=== PATIENT | female | born 1980 | race Caucasian/White ===

== ENCOUNTER 2021-11-03 07:08 | Day surgery (SDC) | payer OTHER ==
[~2021-11-03] VITALS: Ht 154.9 cm; Wt 63.5 kg
[2021-11-03] MEDS ORDERED: fentaNYL citrate 0.05 MG/ML VIAL ONE (08:32)
[2021-11-03] MEDS ORDERED: MIDAZOLAM 5 MG/5 ML VIAL ONE (08:33)
[2021-11-03] MEDS ORDERED: LIDOCAINE 2% 100 MG/5 ML UJET TP ONE (08:33)
[2021-11-03] MEDS ORDERED: fentaNYL citrate 0.05 MG/ML VIAL IVP ONE (11:35)
== END 2021-11-03 09:58 | disposition home or self-care (01) ==
LOC: MOR 07:08 → MMU 07:09 → MOR 09:58
PROVIDERS: ATTEND Internal Medicine Gastroenterology
DX: Z12.11 Encounter for screening for malignant neoplasm of colon (principal); Z80.0 Family history of malignant neoplasm of digestive organs; J45.909 Unspecified asthma, uncomplicated; Z79.899 Other long term (current) drug therapy; Z20.822 Contact with and (suspected) exposure to COVID-19
CPT/HCPCS: 45378; 81025; 87426; J3010; J2250